=== PATIENT | male | born 1985 | race African-American/Black ===

== ENCOUNTER 2018-04-21 09:49 | Emergency (ER) | payer SELFPAY ==
--- NOTE | 2018-04-21 10:11 | EDM.PDOC ---
ED HPI GENERAL MEDICAL PROBLEM - General Chief Complaint: Upper Extremity Injury/Pain Stated Complaint: LT SHOULDER PAIN Time Seen by Provider: 04/21/18 10:11 Source of Information: Reports: Patient History Limitations: Reports: No Limitations - History of Present Illness INITIAL COMMENTS - FREE TEXT/NARRATIVE: HISTORY AND PHYSICAL: History of present illness: Patient is a 32-year-old male here with complaint of left shoulder pain. He states he came to the ED thinking he'd be able to see Aixa Walton NP in the clinic who he saw last month. he states he has done physical therapy and was told to follow up after 1 month. He states he continues to have pain but would is here for a release to go back to work. I explained to patient that we do not do work releases in the ED and he will need to follow up with Aixa. I informed him I'd address his shoulder pain today if he'd like but he declined and states he would like to go to the clinic. Review of systems: As per history of present illness and below otherwise all systems reviewed and negative. Past medical history: As per history of present illness and as reviewed below otherwise noncontributory. Surgical history: As per history of present illness and as reviewed below otherwise noncontributory. Social history: No reported history of drug or alcohol abuse. Family history: As per history of present illness and as reviewed below otherwise noncontributory. Physical exam: General: Patient sitting comfortably in no acute distress and nontoxic appearing HEENT: Atraumatic, normocephalic, pupils reactive, negative for conjunctival pallor or scleral icterus, mucous membranes moist, throat clear, neck supple, nontender, trachea midline. No meningeal signs. Lungs: Clear to auscultation, breath sounds equal bilaterally, chest nontender. Heart: S1S2, regular, negative for clicks, rubs, or overt murmur. Abdomen: Soft, nondistended, nontender. Negative for masses or hepatosplenomegaly. Negative for costovertebral tenderness. Pelvis: Stable nontender. Genitourinary: Deferred. Rectal: Deferred. Extremities: Atraumatic, negative for cords or calf pain. Neurovascular unremarkable. Neuro: Awake, alert, oriented. Cranial nerves II through XII unremarkable. Cerebellum unremarkable. Motor and sensory unremarkable throughout. Exam nonfocal. Notes: Diagnostics: None Therapeutics: None Prescriptions: Impression: Left shoulder pain Plan: 1. Follow up with primary care provider 2. Return to ED as needed as discussed Definitive disposition and diagnosis as appropriate pending reevaluation and review of above. left shoulder, neck Pain Score (Numeric/FACES): 10 - Related Data Allergies Allergy/AdvReac Type Severity Reaction Status Date / Time No Known Allergies Allergy Verified 04/21/18 10:07 Home Meds: Home Meds . [No Known Home Meds] 04/21/18 [History] Past Medical History - Past Health History Medical/Surgical History: Denies Medical/Surgical History Social & Family History - Family History Family Medical History: Noncontributory - Tobacco Use Smoking Status *Q: Never Smoker - Recreational Drug Use Recreational Drug Use: No Review of Systems - Review of Systems Review Of Systems: ROS reveals no pertinent complaints other than HPI. ED EXAM, GENERAL - Physical Exam Exam: See Below (see dictation) Course - Vital Signs Last Recorded V/S: Last Vital Signs Temp 96.8 F 04/21/18 10:02 Pulse 98 04/21/18 10:02 Resp 18 04/21/18 10:02 BP 128/75 04/21/18 10:02 Pulse Ox 99 04/21/18 10:02 Departure - Departure Time of Disposition: 10:17 Disposition: Home, Self-Care 01 Condition: Good Clinical Impression: Left shoulder pain - Discharge Information Referrals: PCP,None [Primary Care Provider] - Forms: ED Department Discharge Additional Instructions: The following information is given to patients seen in the emergency department who are being discharged to home. This information is to outline your options for follow-up care. We provide all patients seen in our emergency department with a follow-up referral. The need for follow-up, as well as the timing and circumstances, are variable depending upon the specifics of your emergency department visit. If you don't have a primary care physician on staff, we will provide you with a referral. We always advise you to contact your personal physician following an emergency department visit to inform them of the circumstance of the visit and for follow-up with them and/or the need for any referrals to a consulting specialist. The emergency department will also refer you to a specialist when appropriate. This referral assures that you have the opportunity for follow-up care with a specialist. All of these measure are taken in an effort to provide you with optimal care, which includes your follow-up. Under all circumstances we always encourage you to contact your private physician who remains a resource for coordinating your care. When calling for follow-up care, please make the office aware that this follow-up is from your recent emergency room visit. If for any reason you are refused follow-up, please contact the [facility] Emergency Department at and asked to speak to the emergency department charge nurse. [facility] [address] [place] [id number] 1. Follow up with primary care provider 2. Return to ED as needed as discussed
== END 2018-04-21 10:52 | disposition home or self-care (01) ==
LOC: MW.ED 09:49
DX: M25.512 Pain in left shoulder (principal)
CPT/HCPCS: 99282; 99283

== ENCOUNTER 2019-09-20 01:20 | Emergency (ER) | payer SELFPAY ==
[2019-09-20] MEDS ORDERED: Sodium Chloride 0.9% 10 ML Syringe FLUSH PRN (01:37)
[2019-09-20] MEDS ORDERED: Sodium Chloride 0.9% 2.5 ML Syringe FLUSH PRN (01:37)
[2019-09-20] MEDS ORDERED: Lactated Ringers 1,000 ML IV ONE (01:38)
[2019-09-20] MEDS ORDERED: Ketorolac 30 MG/ML SDV IVPUSH ONE (01:38)
[2019-09-20] MEDS ORDERED: Ondansetron 4 MG/2 ML SDV IVPUSH ONE (01:38)
[2019-09-20] MEDS ORDERED: Dicyclomine 10 MG Cap PO ONE (01:39)
--- NOTE | 2019-09-20 01:40 | EDM.PDOC ---
ED HPI GENERAL MEDICAL PROBLEM - General Chief Complaint: Abdominal Pain Stated Complaint: RIGHT SIDE ABDOMINAL PAIN Time Seen by Provider: 09/20/19 01:21 Source of Information: Reports: Patient History Limitations: Reports: No Limitations - History of Present Illness INITIAL COMMENTS - FREE TEXT/NARRATIVE: 34-year-old male with no past medical history presents with abdominal pain. Pain started 1 day ago, localized to the right flank, radiates to the right lower quadrant, sharp, moderate in intensity, constant. Admits to dark urine. Denies fever, chills, nausea, vomiting, diarrhea, chest pain. ROS: A 10-point review of systems, other than pertinent positives and negatives as stated per HPI, is otherwise negative Past medical history: No additional pertinent history Past Surgical history: No additional pertinent history Social history: No additional pertinent history Family history: No additional pertinent history PHYSICAL EXAM General: AOx4, GCS = 15, moderate distress HEENT: dry mucous membrane Neck: supple, no meningismus, no Kernig or Brudzinski Cardiac: S1S2 RRR Respiratory: CTAB, no crackles or rales, no wheezing Abdomen: Soft, nontender, no rebound or guarding, nondistended, no pulsatile mass. Back: right CVAT Musculoskeletal: NVI distally, no deformity Neuro: No focal deficits, CN 2 - 12 WNL. right flank Pain Score (Numeric/FACES): 10 - Related Data Allergies Allergy/AdvReac Type Severity Reaction Status Date / Time No Known Allergies Allergy Verified 09/20/19 01:30 Home Meds: Home Meds Magnesium Citrate 125 mg PO BID #30 capsule 09/20/19 [Rx] Past Medical History - Past Health History Medical/Surgical History: Denies Medical/Surgical History HEENT History: Reports: None Cardiovascular History: Reports: None Respiratory History: Reports: None Gastrointestinal History: Reports: None Genitourinary History: Reports: None Musculoskeletal History: Reports: None Neurological History: Reports: None Psychiatric History: Reports: None Endocrine/Metabolic History: Reports: None Insulin Pump Model and Esol Teacher: None Hematologic History: Reports: None Immunologic History: Reports: None Oncologic (Cancer) History: Reports: None Dermatologic History: Reports: None - Infectious Disease History Infectious Disease History: Reports: None - Past Surgical History Head Surgeries/Procedures: Reports: None Social & Family History - Family History Family Medical History: Noncontributory - Tobacco Use Smoking Status *Q: Current Every Day Smoker Years of Tobacco use: 5 Packs/Tins Daily: 0.5 ED ROS GENERAL - Review of Systems Review Of Systems: Comprehensive ROS is negative, except as noted in HPI. ED EXAM, GENERAL - Physical Exam Exam: See Below (see dictation) Course - Vital Signs Last Recorded V/S: Last Vital Signs Temp 98.5 F 09/20/19 01:31 Pulse 90 09/20/19 01:47 Resp 18 09/20/19 01:47 BP 124/85 09/20/19 01:47 Pulse Ox 96 09/20/19 01:47 - Orders/Labs/Meds Orders: Active Orders 24 hr Category Date Time Status Sodium Chloride 0.9% [Saline Flush] Med 09/20/19 01:37 Active 10 ml FLUSH ASDIRECTED PRN Sodium Chloride 0.9% [Saline Flush] Med 09/20/19 01:37 Active 2.5 ml FLUSH ASDIRECTED PRN Saline Lock Insert [OM.PC] Stat Oth 09/20/19 01:37 Ordered Medication Orders Sodium Chloride (Saline Flush) 10 ml FLUSH ASDIRECTED PRN PRN Reason: Keep Vein Open Sodium Chloride (Saline Flush) 2.5 ml FLUSH ASDIRECTED PRN PRN Reason: Keep Vein Open Labs: Laboratory Tests 09/20/19 09/20/19 09/20/19 Range/Units 01:35 01:35 01:35 WBC 10.06 (4.0-11.0) K/uL RBC 4.68 (4.50-5.90) M/uL Hgb 13.9 (13.0-17.0) g/dL Hct 41.5 (38.0-50.0) % MCV 88.7 (80.0-98.0) fL MCH 29.7 (27.0-32.0) pg MCHC 33.5 (31.0-37.0) g/dL RDW Std Deviation 45.2 (28.0-62.0) fl RDW Coeff of Alex 14 (11.0-15.0) % Plt Count 253 (150-400) K/uL MPV 9.20 (7.40-12.00) fL Neut % (Auto) 57.1 (48.0-80.0) % Lymph % (Auto) 32.6 (16.0-40.0) % [place] % (Auto) 9.0 (0.0-15.0) % Eos % (Auto) 0.9 (0.0-7.0) % Baso % (Auto) 0.4 (0.0-1.5) % Neut # (Auto) 5.7 (1.4-5.7) K/uL Lymph # (Auto) 3.3 H (0.6-2.4) K/uL [place] # (Auto) 0.9 H (0.0-0.8) K/uL Eos # (Auto) 0.1 (0.0-0.7) K/uL Baso # (Auto) 0.0 (0.0-0.1) K/uL Nucleated RBC % 0.0 /100WBC Nucleated RBCs # 0 K/uL Sodium 138 (136-148) mmol/L Potassium 3.5 (3.5-5.1) mmol/L Chloride 100 (98-107) mmol/L Carbon Dioxide 25.4 (21.0-32.0) mmol/L BUN 8 (7.0-18.0) mg/dL Creatinine 1.0 (0.8-1.3) mg/dL Est Cr Clr Drug Dosing 92.16 mL/min Estimated GFR (MDRD) > 60.0 ml/min Glucose 112 H (74-106) mg/dL Calcium 8.6 (8.5-10.1) mg/dL Total Bilirubin 0.2 (0.2-1.0) mg/dL AST 43 H (15-37) IU/L ALT 76 H (14-63) IU/L Alkaline Phosphatase 71 (46-116) U/L Total Protein 8.2 (6.4-8.2) g/dL Albumin 4.1 (3.4-5.0) g/dL Globulin 4.1 H (2.6-4.0) g/dL Albumin/Globulin Ratio 1.0 (0.9-1.6) Lipase 200 (73-393) U/L Urine Color YELLOW Urine Appearance CLEAR Urine pH 6.0 (5.0-8.0) Ur Specific [place] 1.015 (1.001-1.035) Urine Protein NEGATIVE (NEGATIVE) mg/dL Urine Glucose (UA) NEGATIVE (NEGATIVE) mg/dL Urine Ketones NEGATIVE (NEGATIVE) mg/dL Urine Occult Blood SMALL H (NEGATIVE) Urine Nitrite NEGATIVE (NEGATIVE) Urine Bilirubin NEGATIVE (NEGATIVE) Urine Urobilinogen 0.2 (<2.0) EU/dL Ur Leukocyte Esterase NEGATIVE (NEGATIVE) Urine RBC 0-2 (0-2/HPF) Urine WBC 0-1 (0-5/HPF) Ur Epithelial Cells RARE (NONE-FEW) Urine Bacteria FEW (NEGATIVE) Urine Mucus LIGHT (NONE-MOD) Meds: Medications Generic Name Dose Route Start Last Admin Trade Name Stephen PRN Reason Stop Dose Admin Sodium Chloride 10 ml 09/20/19 01:37 Saline Flush FLUSH ASDIRECTED PRN Keep Vein Open Sodium Chloride 2.5 ml 09/20/19 01:37 Saline Flush FLUSH ASDIRECTED PRN Keep Vein Open Discontinued Medications Generic Name Dose Route Start Last Admin Trade Name Freq PRN Reason Stop Dose Admin Dicyclomine HCl 20 mg 09/20/19 01:39 09/20/19 01:44 Bentyl PO 09/20/19 01:40 20 mg ONETIME ONE Administration Lactated Ringer's 1,000 mls @ 999 mls/hr 09/20/19 01:38 09/20/19 01:48 Ringers, Lactated IV 09/20/19 02:38 999 mls/hr .BOLUS ONE Administration Ketorolac Tromethamine 30 mg 09/20/19 01:38 09/20/19 01:45 Toradol IVPUSH 09/20/19 01:39 30 mg ONETIME ONE Administration Ondansetron HCl 4 mg 09/20/19 01:38 09/20/19 01:45 Zofran IVPUSH 09/20/19 01:39 4 mg ONETIME ONE Administration - Re-Assessments/Exams Free Text/Narrative Re-Assessment/Exam: 09/20/19 03:50 After treatments and observation in the ER, patient improved clinically and is currently stable for discharge. I performed a repeat exam and did not appreciate new abnormal findings. Patient exhibits normal vital signs and has a normal gait. I advised the patient to return to the ER for reevaluation if symptoms worsened, including fever, worsening pain, or any other worrisome symptoms. I instructed the patient to follow up with their PCP within 2-3 days. MEDICAL DECISION MAKING: I reviewed the patients past medical records, lab and radiographic findings. I discussed the case with the patient. My differential diagnosis included: Departure - Departure Time of Disposition: 03:51 Disposition: Home, Self-Care 01 Condition: Good Clinical Impression: Abdominal pain, Constipation - Discharge Information *PRESCRIPTION DRUG MONITORING PROGRAM REVIEWED*: Not Applicable *COPY OF PRESCRIPTION DRUG MONITORING REPORT IN PATIENT ZOË: Not Applicable Prescriptions: Magnesium Citrate 125 mg PO BID #30 capsule Instructions: Constipation, Adult, Abdominal Pain, Adult, [id number] Referrals: PCP,None [Primary Care Provider] - 3 Days Forms: ED Department Discharge Additional Instructions: The following information is given to patients seen in the emergency department who are being discharged to home. This information is to outline your options for follow-up care. We provide all patients seen in our emergency department with a follow-up referral. The need for follow-up, as well as the timing and circumstances, are variable depending upon the specifics of your emergency department visit. If you don't have a primary care physician on staff, we will provide you with a referral. We always advise you to contact your personal physician following an emergency department visit to inform them of the circumstance of the visit and for follow-up with them and/or the need for any referrals to a consulting specialist. The emergency department will also refer you to a specialist when appropriate. This referral assures that you have the opportunity for follow-up care with a specialist. All of these measure are taken in an effort to provide you with optimal care, which includes your follow-up. Under all circumstances we always encourage you to contact your private physician who remains a resource for coordinating your care. When calling for follow-up care, please make the office aware that this follow-up is from your recent emergency room visit. If for any reason you are refused follow-up, please contact the [facility] Emergency Department at and asked to speak to the emergency department charge nurse. If you do not have a primary care doctor, please follow up with the clinics below within 3-5 days. [facility] [address] [place] [id number] [facility] [address] [place] [id number] Sepsis Event Note (ED) - Evaluation Sepsis Screening Result: No Definite Risk - Focused Exam Vital Signs: Vital Signs Temp Pulse Resp BP Pulse Ox 09/20/19 01:47 90 18 124/85 96 09/20/19 01:31 98.5 F 100 18 162/98 H 98 - My Orders Last 24 Hours: My Active Orders 09/20/19 01:37 Sodium Chloride 0.9% [Saline Flush] 10 ml FLUSH ASDIRECTED PRN Sodium Chloride 0.9% [Saline Flush] 2.5 ml FLUSH ASDIRECTED PRN Saline Lock Insert [OM.PC] Stat - Assessment/Plan Last 24 Hours: My Active Orders 09/20/19 01:37 Sodium Chloride 0.9% [Saline Flush] 10 ml FLUSH ASDIRECTED PRN Sodium Chloride 0.9% [Saline Flush] 2.5 ml FLUSH ASDIRECTED PRN Saline Lock Insert [OM.PC] Stat
[2019-09-20 02:07] LABS: BLOOD UREA NITROGEN,BUN 8 mg/dL (7.0-18.0); CARBON DIOXIDE,CO2 25.4 mmol/L (21.0-32.0); CHLORIDE,CL 100 mmol/L (98-107); GLUCOSE RANDOM 112 mg/dL (74-106); LIPASE 200 U/L (73-393); POTASSIUM,K 3.5 mmol/L (3.5-5.1); SODIUM,NA 138 mmol/L (136-148)
--- NOTE | 2019-09-20 03:47 | CT ---
INDICATION: Right flank pain TECHNIQUE: CT abdomen and pelvis without contrast. COMPARISON: None FINDINGS: Lower chest: Bibasilar atelectasis. Liver: Unremarkable. Spleen: Unremarkable. Pancreas: Unremarkable. Gallbladder and bile ducts: Unremarkable. Kidneys: Unremarkable. No kidney or ureteral stones and no hydronephrosis. Adrenal glands: Unremarkable. GI tract: Colonic fecal retention involving the ascending and transverse colon. Appendix is normal. Vascular structures: Unremarkable. Lymph nodes: Unremarkable. Miscellaneous: Unremarkable. No free air or significant free fluid. Pelvic Organs: Unremarkable. Bones: Unremarkable for age. IMPRESSION: No urinary tract stones or hydronephrosis. Solid fecal retention involving the ascending and transverse colon. Dictated by Artur Finney MD @ 09/20/2019 3:45:32 AM Please note that all CT scans at this facility use dose modulation, iterative reconstruction, and/or weight-based dosing when appropriate to reduce radiation dose to as low as reasonably achievable. Dictated by: Artur Finney MD @ 09/20/2019 03:45:46 (Electronically Signed)
== END 2019-09-20 04:00 | disposition home or self-care (01) ==
LOC: MW.ED 01:20
DX: K59.00 Constipation, unspecified (principal); F17.210 Nicotine dependence, cigarettes, uncomplicated
CPT/HCPCS: 36415; 74176; 80053; 81001; 83690; 85025; 96374; 96375; 99284; A9270; J1885; J2405; J7120

== ENCOUNTER 2019-09-20 15:00 | Emergency (ER) | payer SELFPAY ==
[2019-09-20] MEDS ORDERED: Lidocaine 5% 700 MG Patch TOP ONE (15:35)
[2019-09-20] MEDS ORDERED: Ketorolac 15 MG/ML SDV IM ONE (15:35)
[2019-09-20] MEDS ORDERED: Acetaminophen 500 MG Tab PO ONE (15:35)
--- NOTE | 2019-09-20 15:38 | EDM.PDOC ---
<Geoffrey Mathtew - Last Filed: 09/20/19 19:21> ED HPI GENERAL MEDICAL PROBLEM - General Chief Complaint: Flank Pain Stated Complaint: SIDE PAIN Time Seen by Provider: 09/20/19 15:05 Source of Information: Reports: Patient, Old Records History Limitations: Reports: No Limitations - History of Present Illness INITIAL COMMENTS - FREE TEXT/NARRATIVE: 34-year-old male with no past medical history presenting with right flank pain. Patient was seen earlier this morning by my colleague Dr. Llanes with similar complaints. Underwent noncontrast imaging of the abdomen/pelvis which showed no acute findings and the patient was discharged after receiving IV fluids, Toradol, Zofran, and dicyclomine. He was prescribed magnesium citrate and diagnosed with acute constipation. This afternoon, he presents back to the emergency department complaining of persistent right flank pain. He is very concerned that he has a kidney stone despite negative work-up from earlier this morning. He is requesting "1 or 2 days of that kidney stone medication". I did explain the work-up results from earlier this morning but he is perseverating on the idea that he has a kidney stone. Reports a 4-day history of right flank pain radiating to the right lower quadrant of the abdomen. Not particularly worse today, but he was concerned that the pain did not go away. Somewhat worse with breathing. Denies any urinary frequency, hematuria, dysuria, fever, chills, trauma to the flank. No prior history of kidney stones. No rash or history of shingles. No other complaints. ROS: A 10-point review of systems was negative, except as noted in the HPI (or in the ROS section of this note). Past medical history: Reviewed, no additional pertinent history. Surgical history: Reviewed in system, no additional pertinent history. Social history: Reviewed in system, no additional pertinent history. Family history: Reviewed in system, no additional pertinent history. PHYSICAL EXAM Vital signs reviewed. Nursing notes reviewed. Constitutional: Awake, alert, non-distressed. Head: Normocephalic, atraumatic. Eyes: EOMI, conjunctiva normal, no discharge, no scleral icterus. Ears, Nose, Throat: External ears and nose normal, moist oral mucosa. Cardiovascular: 2+ radial pulse, capillary refill less than 2 seconds. Pulmonary: normal work of breathing, no accessory muscle use. CTA BL Abdomen/GI: Soft, nontender, nondistended, no guarding or rigidity, no masses. No CVA tenderness bilaterally. Musculoskeletal: No deformities. Integumentary: Appropriate color for ethnicity, warm, dry, no pallor or jaundice, no rash. No evidence of shingles. Neurologic: Alert, answering questions appropriately, normal speech, no facial droop, moving all extremities well. Psychiatric: Appropriate mood and affect, normal thought process. right flank Pain Score (Numeric/FACES): 10 - Related Data Allergies Allergy/AdvReac Type Severity Reaction Status Date / Time No Known Allergies Allergy Verified 09/20/19 15:08 Home Meds: Home Meds Acetaminophen/HYDROcodone [[place] 325-5 MG] 1 tab PO Q6H PRN #20 tablet 09/20/19 [Rx] Rivaroxaban [Xarelto] 15 mg PO BID 21 Days #42 tab 09/20/19 [Rx] Past Medical History - Past Health History Medical/Surgical History: Denies Medical/Surgical History HEENT History: Reports: None Cardiovascular History: Reports: None Respiratory History: Reports: None Gastrointestinal History: Reports: None Genitourinary History: Reports: None Musculoskeletal History: Reports: None Neurological History: Reports: None Psychiatric History: Reports: None Endocrine/Metabolic History: Reports: None Insulin Pump Model and Community Marketing Manager: None Hematologic History: Reports: None Immunologic History: Reports: None Oncologic (Cancer) History: Reports: None Dermatologic History: Reports: None - Infectious Disease History Infectious Disease History: Reports: None - Past Surgical History Head Surgeries/Procedures: Reports: None Social & Family History - Family History Family Medical History: Noncontributory - Tobacco Use Smoking Status *Q: Current Every Day Smoker Years of Tobacco use: 5 Packs/Tins Daily: 0.1 - Recreational Drug Use Recreational Drug Use: No ED ROS GENERAL - Review of Systems Review Of Systems: See Below ED EXAM, RENAL/ - Physical Exam Exam: See Below EKG INTERPRETATION EKG Interpretation Comments: 12-Lead ECG Interpretation Acquired: 4:43 PM Rhythm: Sinus rhythm Rate: 77 bpm [place]: Normal Intervals: Normal Ectopy: None Ischemic Changes: None apparent RV Strain: No obvious RV strain pattern. ST Segments/T-Waves: No notable changes Interpretation: Unremarkable Course - Vital Signs Text/Narrative:: Patient hemodynamically stable, afebrile, well-appearing, looks nontoxic. Differential diagnosis includes but is not limited to: Shingles, musculoskeletal back pain, renal infarction, renal papillary necrosis, renal artery embolism, occult trauma, ureterolithiasis, UTI, pyelonephritis, pulmonary embolism, etc. Physical exam of the back revealed no shingles-like rash. No CVA tenderness. Low suspicion for pulmonary embolism, no historical risk factors. No chest pain or shortness of breath. Not tachycardic or hypoxic. Pain improved after medications. Obtained renal ultrasound to evaluate structure and vascular supply, this is normal. D-dimer returned significantly elevated, will plan for CT pulmonary angiogram. 12-lead ECG shows no acute ischemic or signs of RV strain. Troponin is negative. UA shows moderate hematuria. CT pulmonary angiogram read pending at time of shift change. Signed out in person to my colleague Dr. Brown. Please see his note for disposition. Departure - Departure Disposition: Home, Self-Care 01 Clinical Impression: Pulmonary embolism on right - Discharge Information Prescriptions: Acetaminophen/HYDROcodone [G[place] 325-5 MG] 1 tab PO Q6H PRN #20 tablet PRN Reason: Pain Rivaroxaban [Xarelto] 15 mg PO BID 21 Days #42 tab Referrals: PCP,None [Primary Care Provider] - [facility] [Outside] [facility] [Outside] Forms: ED Department Discharge Additional Instructions: Your symptoms today appear to be a result of a blood clot in your lung. You will be started on a blood thinner called Xarelto that you need to take twice a day for the next 21 days. After the 21-day course, your dose will likely be decreased to 1 pill daily. You have been given a prescription for your Xarelto for the next 21 days but you must follow-up with a primary care physician to be further evaluated and make sure that you are treated the appropriate duration for your blood clot. While you are on Xarelto, you must avoid medications that would increase the likelihood of bleeding. These medications include ibuprofen and aspirin. You need to avoid any activity that would put you at high risk of injury while you are on Xarelto since it is a blood thinner and will increase her likelihood of bleeding. If you should experience any type of head injury, you need to come to the hospital immediately to be evaluated. You have been given a prescription for [place] to assist you with your pain. The results of your CAT scan revealed an acute pulmonary embolism. The RV to LV ratio is 1.0 which as we discussed, is indicative of right heart strain. Care Plan Goals: The following information is given to patients seen in the emergency department who are being discharged to home. This information is to outline your options for follow-up care. We provide all patients seen in our emergency department with a follow-up referral. The need for follow-up, as well as the timing and circumstances, are variable depending upon the specifics of your emergency department visit. If you don't have a primary care physician on staff, we will provide you with a referral. We always advise you to contact your personal physician following an emergency department visit to inform them of the circumstance of the visit and for follow-up with them and/or the need for any referrals to a consulting specialist. The emergency department will also refer you to a specialist when appropriate. This referral assures that you have the opportunity for follow-up care with a specialist. All of these measure are taken in an effort to provide you with optimal care, which includes your follow-up. Under all circumstances we always encourage you to contact your private physician who remains a resource for coordinating your care. When calling for follow-up care, please make the office aware that this follow-up is from your recent emergency room visit. If for any reason you are refused follow-up, please contact the [facility] Emergency Department at and asked to speak to the emergency department charge nurse. Been given a prescription for Xarelto 15 mg every 12 hours for 21 days. You will eventually need to see a primary care physician so that they can continue this medication for you as you will likely need to be on this for several month. We will also do with obtaining a family care physician appointment so that they can assist you with further evaluation of your pulmonary embolism. Sepsis Event Note (ED) - Evaluation Sepsis Screening Result: No Definite Risk <Moris Brown - Last Filed: 09/20/19 19:56> Course - Vital Signs Last Recorded V/S: Last Vital Signs Temp 97.0 F 09/20/19 17:26 Pulse 90 09/20/19 18:27 Resp 18 09/20/19 18:27 BP 135/95 H 09/20/19 18:27 Pulse Ox 96 09/20/19 18:27 - Orders/Labs/Meds Orders: Active Orders 24 hr Category Date Time Status EKG Documentation Completion [RC] STAT Care 09/20/19 16:27 Active Labs: Laboratory Tests 09/20/19 09/20/19 09/20/19 Range/Units 15:39 17:19 17:19 D-Dimer, Quantitative 3.56 H (0.0-0.50) mg/L FEU Troponin I < 0.050 (0.000-0.056) ng/mL Urine Color YELLOW Urine Appearance CLEAR Urine pH 7.0 (5.0-8.0) Ur Specific [place] 1.015 (1.001-1.035) Urine Protein NEGATIVE (NEGATIVE) mg/dL Urine Glucose (UA) NEGATIVE (NEGATIVE) mg/dL Urine Ketones NEGATIVE (NEGATIVE) mg/dL Urine Occult Blood MODERATE H (NEGATIVE) Urine Nitrite NEGATIVE (NEGATIVE) Urine Bilirubin NEGATIVE (NEGATIVE) Urine Urobilinogen 0.2 (<2.0) EU/dL Ur Leukocyte Esterase NEGATIVE (NEGATIVE) Urine RBC 2-5 (0-2/HPF) Urine WBC 0-2 (0-5/HPF) Ur Epithelial Cells RARE (NONE-FEW) Urine Bacteria NOT SEEN (NEGATIVE) Meds: Medications Discontinued Medications Generic Name Dose Route Start Last Admin Trade Name Stephen PRN Reason Stop Dose Admin Acetaminophen 1,000 mg 09/20/19 15:35 09/20/19 15:49 Tylenol Extra Strength PO 09/20/19 15:36 1,000 mg ONETIME ONE Administration Ketorolac Tromethamine 15 mg 09/20/19 15:35 09/20/19 15:49 Toradol IM 09/20/19 15:36 15 mg ONETIME ONE Administration Lidocaine 700 mg 09/20/19 15:35 09/20/19 15:49 Lidoderm 5% TOP 09/20/19 15:36 700 mg ONETIME ONE Administration Rivaroxaban 15 mg 09/20/19 19:32 09/20/19 19:49 Xarelto PO 09/20/19 19:33 15 mg WITHDINNER STA Administration - Re-Assessments/Exams Free Text/Narrative Re-Assessment/Exam: 09/20/19 19:52 Patient was signed out to me at 7 PM. Patient was evaluated by me and I have discussed with him the results of his CT scan reports. Patient had a CT scan that revealed a pulmonary embolism with a relatively large burden to the right lower lobe but minimal clot elsewhere. The RV to LV ratio was approximately 1.0 which is greater than the 0.9 considered indicative of right heart strain. Patient currently has no complaints except for pain to his right side which is improved while here in the ED. Patient at this time has called me into his room and is requesting to be discharged from the hospital and has ordered food to be delivered to his room. Patient is upset that we do not have bottled water for him here to drink and would like to go home so that he can eat his dinner. Patient has agreed to stay long enough for me to initiate therapy with Xarelto for him and to obtain his discharge instructions and to assist him with continuity of care as an outpatient. Patient has been given Xarelto 15 mg p.o. in the ED and will be discharged on Xarelto 15 mg p.o. every 12 hours x21 days. Patient has been instructed on the need to follow-up with a primary care physician for further evaluation as to the cause of his pulmonary embolism. Patient reports that he is extremely active and does not live a sedentary lifestyle. Patient reports that his father did have a pulmonary embolism at a young age but that has never been worked up. Patient denies any other family history of PE or DVT. Patient denies any recent long trips or car rides. Patient denies any chest pain or shortness of breath or hemoptysis. Patient denies any lower extremity edema or calf tenderness. Patient denies any recent fevers, shakes, chills, nausea, vomiting, diarrhea, dysuria, frequency, urgency. Patient denies any melena or bright red blood per rectum. Patient denies any hematuria, hemoptysis. Patient's labs from have been reviewed and patient has a normal GFR. At this time, the patient is clinically hemodynamically stable and given the patient's desire to be discharged in the hospital, he will be discharged with Xarelto 15 mg p.o. every 12 hours x21 days and will be instructed to follow-up with a primary care for physician for further evaluation. I have discussed with the patient my concern with right heart strain and its morbidity. Reassessment at the time of disposition demonstrates that the patient is in no acute distress. The patient has remained stable throughout the entire ED visit and is without objective evidence for acute process requiring urgent intervention or hospitalization. The patient is stable for discharge, counseling is provided as documented above, discussed symptomatic treatment and specific conditions for return. I have spoken with the patient/caregive and discussed todays findings, in addition to providing specific details for the plan of care. Questions are answered and there is agreement with the plan. Departure - Departure Time of Disposition: 19:34 Condition: Good Sepsis Event Note (ED) - Focused Exam Vital Signs: Vital Signs Temp Pulse Resp BP Pulse Ox 09/20/19 18:27 90 18 135/95 H 96 09/20/19 17:26 97.0 F 88 18 145/99 H 94 L 09/20/19 15:05 98.7 F 101 H 20 145/92 H 95
--- NOTE | 2019-09-20 16:39 | US ---
Limited renal arterial Doppler with renal ultrasound: Duplex and color Doppler evaluation was obtained of the right renal arteries as well as multiple real-time images of the right kidney. Right kidney shows no hydronephrosis or mass. Right kidney shows normal cortical thickness. Right kidney has a length of 10.5 cm. Right renal vein and right renal artery show no evidence of stenosis or obstruction. Impression: 1. No abnormality identified on ultrasound study of the right kidney as described above. 2. No etiology is seen on this exam to explain the patient's right flank pain. Diagnostic code #1 This report was dictated in MDT
--- NOTE | 2019-09-20 17:34 | CR ---
Chest: 2 views of the chest were obtained. Comparison: Previous chest x-ray of 03/23/18. Atelectasis is noted within the left lung base. Lungs otherwise are clear. Heart size and mediastinum are normal. No discrete bony abnormality is appreciated. Impression: 1. Left basilar atelectasis. 2. Nothing acute is otherwise seen on 2 view chest x-ray. Diagnostic code #2 This report was dictated in MDT
--- NOTE | 2019-09-20 19:10 | CT ---
INDICATION: Pleuritic back pain and elevated D-dimer COMPARISON: None TECHNIQUE: : CT examination of the chest was performed with the uneventful intravenous administration of 75 cc of Isovue 3 7 while thin axial sections were obtained from above the apices of the lungs to the lung bases. Please note that all CT scans at this facility use dose modulation, iterative reconstruction, and/or weight-based dosing when appropriate to reduce radiation dose to as low as reasonably achievable. FINDINGS: : HEART and MEDIASTINUM: The heart size is normal. There is no mediastinal or hilar adenopathy or mass. There is no pericardial effusion. PULMONARY ARTERIAL CIRCULATION: There is a pulmonary embolus. There is a relatively large burden to the right lower lobe but minimal clot elsewhere. However, the RV to LV ratio is approximately 1.0. Greater than 0.9 is considered indicative of right heart strain. LUNGS: Bibasilar airspace process posteriorly, right greater than left, probably atelectasis. PLEURAL SPACES: There is no pleural effusion, pneumothorax or pleural based mass. VISUALIZED UPPER ABDOMEN: Hepatic steatosis. Otherwise, limited visualized upper abdominal structures appear normal. OSSEOUS STRUCTURES: Age-appropriate appearance. No acute fracture or destructive process. TUBES and LINES: None. IMPRESSION: 1. Acute pulmonary embolus. The RV to LV ratio is 1.0. Greater than 0.9 is considered indicative of right heart strain 2. Bibasilar subsegmental atelectasis. 3. Discussed at 7 p.m. on September 20, 2019 by myself with Geoffrey Myrick Please note that all CT scans at this facility use dose modulation, iterative reconstruction, and/or weight-based dosing when appropriate to reduce radiation dose to as low as reasonably achievable. Dictated by Boom Valencia MD @ Sep 20 2019 7:01PM Signed by Dr. Boom Valencia @ Sep 20 2019 7:09PM
[2019-09-20] MEDS ORDERED: Rivaroxaban 15 MG Tab PO STA (19:32)
== END 2019-09-20 20:08 | disposition home or self-care (01) ==
LOC: MW.ED 15:00
DX: I26.99 Other pulmonary embolism without acute cor pulmonale (principal); F17.210 Nicotine dependence, cigarettes, uncomplicated; Z79.01 Long term (current) use of anticoagulants
CPT/HCPCS: 71046; 71275; 81001; 84484; 85379; 93005; 93976; 96372; 99285; A9270; J1885

== ENCOUNTER 2021-10-30 15:25 | Emergency (ER) | payer SELFPAY ==
[2021-10-30] MEDS ORDERED: Alum Hydro/Mag Hydro/Simeth XS 15 ML, Lidocaine 2% 5 ML PO ONE ×2 (15:56)
[2021-10-30] MEDS ORDERED: Sodium Chloride 0.9% 1,000 ML IV ONE (16:27)
[2021-10-30] MEDS ORDERED: Ketorolac 30 MG/ML SDV IVPUSH ONE (16:28)
[2021-10-30 16:47] LABS: CARBON DIOXIDE,CO2 24.5 mmol/L (21.0-32.0); POTASSIUM,K 3.6 mmol/L (3.5-5.1)
== END 2021-10-30 17:21 | disposition home or self-care (01) ==
LOC: MW.ED 15:25 → MERGE 15:25 → EDBD 15:25 → MW.ED 17:21
DX: R10.10 Upper abdominal pain, unspecified (principal); Z79.899 Other long term (current) drug therapy
CPT/HCPCS: 36415; 80053; 83690; 85025; 96361; 96374; 99284; A9270; J1885; J7030

== ENCOUNTER 2021-11-02 14:16 | Emergency (ER) | payer SELFPAY ==
[2021-11-02] MEDS ORDERED: Lidocaine 1% 5 ML VIAL INJECT ONE (15:26)
[2021-11-02] MEDS ORDERED: Diphtheria,Pertussis(Acell),Tetanus Vaccine 0.5 ML Syringe IM ONE (15:45)
== END 2021-11-02 17:00 | disposition home or self-care (01) ==
LOC: MW.ED 14:16
DX: S01.412A Laceration without foreign body of left cheek and temporomandibular area, initial encounter (principal); Z23 Encounter for immunization; W22.8XXA Striking against or struck by other objects, initial encounter
CPT/HCPCS: 12011; 90471; 90715; 99282; 99282-25